=== PATIENT | female | born 1990 | race Caucasian/White ===

== ENCOUNTER 2017-06-23 03:11 | Inpatient (IN) | payer MEDICAID, SELFPAY ==
[2017-06-23] MEDS ORDERED: Labetalol HCl 100 MG/20 ML VIAL SLOW IVP PRN (06:41)
[2017-06-23 06:43] VITALS: BMI 27.4
[2017-06-23] MEDS ORDERED: Promethazine HCl 25 MG/ML VIAL IM PRN (06:51)
[2017-06-23] MEDS ORDERED: Ondansetron HCl/PF 4 MG/2 ML Vial IVP PRN ×2 (06:51→07:30)
[2017-06-23] MEDS ORDERED: Magnesium Sulfate 20 gm/500 ml 4 GM/100 ML BAG IVPB ONE (06:54)
[2017-06-23] MEDS ORDERED: Calcium Gluc 4.6 MEQ/10 ML (100 MG/ML) IV PRN (06:54)
[2017-06-23] MEDS ORDERED: LR 500 ML/Oxytocin 10 units 500 ML IV SCH ×2 (07:15)
[2017-06-23] MEDS ORDERED: HYDROcodone/Acetaminophen 5/325 mg Tablet PO PRN ×2 (07:15)
[2017-06-23] MEDS ORDERED: Lidocaine 1% (PF) 30 ML VIAL SC PRN (07:15)
[2017-06-23] MEDS ORDERED: LR / Pitocin 40 units/1000 ml 40 UNITS/1,000 ML BAG IV SCH ×2 (07:15→07:30)
[2017-06-23] MEDS ORDERED: traMADol HCl 50 MG TAB PO PRN ×2 (07:30)
[2017-06-23] MEDS ORDERED: Preparation H Ointment 28 GM TUBE PR PRN (07:30)
[2017-06-23] MEDS ORDERED: OXYTOCIN IV SCH (07:30)
[2017-06-23] MEDS ORDERED: Bisacodyl 10 MG SUPP PR PRN (07:30)
[2017-06-23] MEDS ORDERED: Lanolin Ointment 7 GM TUBE TOP PRN (07:30)
[2017-06-23] MEDS ORDERED: Adacel (T-DAP) 0.5 ML VIAL IM SCH (07:30)
[2017-06-23] MEDS ORDERED: Milk Of Magnesia 30 ML UDCUP PO PRN (07:30)
[2017-06-23] MEDS ORDERED: Lactated Ringer's 1,000 ML IV SCH (07:30)
[2017-06-23] MEDS ORDERED: diphenhydrAMINE 25 MG CAP PO PRN (07:30)
[2017-06-23] MEDS ORDERED: LACTATED RINGERS IV SCH (07:30)
--- NOTE | 2017-06-23 07:49 | DN ---
DATE OF DELIVERY: 06/23/2017 DESCRIPTION OF PROCEDURE: The patient delivered a male on 06/23/2018 at 4:52 a.m. by uncompli cated term spontaneous vaginal delivery. Apgars were 7 and 9. Weight is unavailable at time of dict ation. Placenta delivered spontaneously followed by Pitocin infusion. There were no lacerations. E stimated blood loss is [address] Payne is the delivering physician. Mother and baby are stable in the immediate .
[2017-06-23 08:22] LABS: Cocaine Metabolite Screen Not Detected (NotDetected); Medtox Reader # READER 4; Methamphetamine Detected (NotDetected); Phencyclidine (PCP) Not Detected (NotDetected); THC/Cannabinoid Screen Not Detected (NotDetected)
[2017-06-23 08:23] LABS: Amphetamine Detected (NotDetected); Barbiturates Screen Not Detected (NotDetected); Benzodiazepine Screen Not Detected (NotDetected); Medtox Control Line Valid? VALID (VALID); Methadone Not Detected (NotDetected); Opiate Screen Not Detected (NotDetected); Oxycodone Screen Not Detected (NotDetected); Tricyclic Screen Not Detected (NotDetected)
[2017-06-23 08:28] LABS: Bilirubin Negative (Negative); Blood, Urine Small (Negative); Clarity CLEAR (Clear); Glucose, Urine (Dipstick) Negative (Negative); Leukocyte Negative (Negative); Nitrite Negative (Negative); Protein, Urine (Dipstick) 30 mg/dL (Neg-Trace); Specific Gravity, Urine 1.028 (1.002-1.036); pH, Urine 6.5 (5.0-9.0)
[2017-06-23 08:30] LABS: Bacteria/HPF Rare-Few HPF (None Seen); Pathc Cast-AUWi Flag 0.87 (0-2.49); Squamous Epithelial 21-50 HPF (0-3)
[2017-06-23 08:42] LABS: Renal Epithelial 0-3 HPF (0-3); Transitional Epithelial 0-3 HPF (0-3)
[2017-06-23 08:43] LABS: Hyaline Casts/LPF 0-3 HYALINE CAST LPF (0-3 Hyaline)
[2017-06-23] MEDS: Lactated Ringer's 1,000 ML IV SCH ×2 (08:58→18:45)
[2017-06-23] MEDS ORDERED: NIFEdipine XL 30 MG TAB PO SCH (09:00)
[2017-06-23] MEDS ORDERED: Prenatal Vitamin 1 TAB PO SCH (09:00)
[2017-06-23 10:45] LABS: Hemoglobin 11.9 g/dL (12.0-16.0); Mean Corpuscular Hemoglobin 29.5 pg (27.0-31.0); Mean Corpuscular Volume 89.4 fL (81.0-99.0); RBC Distribution Width 12.5 % (11.5-14.5); Red Blood Cell (RBC) Count 4.03 mill/uL (4.20-5.40); White Blood Cell (WBC) Count 16.6 thou/uL (4.8-10.8)
[2017-06-23 10:46] LABS: Mean Platelet Volume 9.5 fL (7.4-10.4); Platelet Count 240 thou/uL (130-400)
[2017-06-23 10:59] LABS: Anion Gap 15 mmol/L (10-20); BUN (Urea Nitrogen) 14 mg/dL (7.0-18.7); Carbon Dioxide 17 mmol/L (22-29); Chloride 109 mmol/L (98-107); Potassium 3.5 mmol/L (3.5-5.1); Sodium 137 mmol/L (136-145)
[2017-06-23 11:00] LABS: ALT (SGPT) 20 U/L (8-55); AST (SGOT) 33 U/L (5-34); Albumin 3.4 g/dL (3.5-5.0); Alkaline Phosphatase 219 U/L (40-150); Bilirubin, Total 0.6 mg/dL (0.2-1.2); Calc. Creatinine Clearance 135 mL/min (70-130); Calcium 8.8 mg/dL (7.8-10.44); Estimated GFR-MDRD Greater than 90; Globulin 2.8 g/dL (2.4-3.5); Glucose 106 mg/dL (70-105); Protein, Total 6.2 g/dL (6.0-8.3)
--- NOTE | 2017-06-23 11:01 | PDOC.PP ---
Post Progress Note Post Day #: PPD#0 Subjective: Resting comfortably. Denies PETERSON, RUQ pain or visual changes. PO intake tolerated: yes Ambulation: no Vital Signs (12 hours) Temp Pulse Resp 06/23/17 08:46 97.9 F 80 18 06/23/17 08:43 97.9 F 80 18 Weight Weight 68.039 kg - Physical Examination General: NAD Abdominal: lochia Fundus firm & at: umbilicus Neurological: no gross focal deficits Psychiatric: normal affect Result Diagrams: 06/23/17 07:58 Additional Labs: Post Labs Blood Type O POSITIVE 06/23/17 03:40 - Assessment/Plan S/p with suspected severe PIH Cont. Mgso4 x 24 hours +UDS d/w pt., SS consult ordered
[2017-06-23 11:02] LABS: HBSAg Index 0.17 S/CO (0-0.99); HIV (1/2) Antibody/Antigen N (NonReactive); Hep B Surf Ag NonReactive S/CO (NonReactive)
[2017-06-23 11:03] LABS: HIV 1/2 INDEX 0.13 S/CO (<1.00)
[2017-06-23] MEDS: Docusate Calcium (SURFAK) 240 MG CAP PO SCH ×2 (11:08→21:07)
[2017-06-23] MEDS: Ferrous Sulfate 325 MG TAB PO SCH ×2 (11:12→18:45)
[2017-06-23] MEDS: Magnesium Sulfate 20 gm/500 ml 20 GM/500 ML BAG IVPB PRN (13:58)
[2017-06-23 23:21] LABS: Syphilis Antibody Nonreactive (Nonreactive); Syphilis Antibody Index 0.06 S/CO (<1.00 Non-Reactive)
[2017-06-24] MEDS: Magnesium Sulfate 20 gm/500 ml 20 GM/500 ML BAG IVPB PRN (00:06)
--- NOTE | 2017-06-24 04:44 | PDOC.PP ---
Post Progress Note Post Day #: PPD#1 Subjective: Resting comfortably. No complaints. PO intake tolerated: yes Vital Signs (12 hours) Temp Pulse Resp 06/24/17 04:00 98.6 F 79 16 06/24/17 00:00 98.8 F 79 16 06/23/17 20:00 98.9 F 79 16 Weight Weight 68.039 kg - Physical Examination General: NAD Respiratory: non-labored breathing Abdominal: no distention Fundus firm & at: umbilicus Psychiatric: A&Ox3, normal affect Result Diagrams: 06/23/17 07:58 06/23/17 07:56 Additional Labs: Post Labs Blood Type O POSITIVE 06/23/17 03:40 Hep Bs Antigen NonReactive S/CO (NonReactive) 06/23/17 07:58 - Assessment/Plan S/P with PIH. UDS + f0r methamphedamines DC Mg SO4 and transfer to floor.
[2017-06-24 06:27] LABS: Hemoglobin 9.9 g/dL (12.0-16.0); Mean Corpuscular HGB CONC 33.6 g/dL (32.0-36.0); Mean Corpuscular Hemoglobin 30.1 pg (27.0-31.0); Mean Corpuscular Volume 89.6 fl (81.0-99.0); Mean Platelet Volume 9.3 fL (7.4-10.4); Platelet Count 253 thou/uL (130-400); RBC Distribution Width 12.5 % (11.5-14.5); Red Blood Cell (RBC) Count 3.29 mill/uL (4.20-5.40)
[2017-06-24] MEDS ORDERED: Acetaminophen/Codeine 30-300mg Tablet PO PRN (06:46)
[2017-06-24] MEDS ORDERED: LR / Pitocin 40 units/1000 ml 1,000 ML IV SCH (06:46)
[2017-06-24] MEDS ORDERED: Ondansetron HCl/PF 4 MG/2 ML Vial IVP PRN (06:46)
[2017-06-24] MEDS ORDERED: HYDROcodone/Acetaminophen 5/325 mg Tablet PO PRN ×2 (06:46)
[2017-06-24] MEDS ORDERED: Ibuprofen 800 MG TAB PO PRN (09:07)
[2017-06-24 23:31] VITALS: BP 142/80; TEMP 98.4
--- NOTE | 2017-06-25 00:51 | DIS ---
DATE OF ADMISSION: 06/23/2017 DATE OF DISCHARGE: 06/24/2017 ADMITTING DIAGNOSES: 1. Labor. 2. -induced hypertension. 3. Positive drug screen. DISCHARGE DIAGNOSES: 1. Labor. 2. -induced hypertension. 3. Positive drug screen. PROCEDURE: Normal vaginal delivery. HOSPITAL COURSE: The patient is a 26-year-old female who presented in active labor to [facility] very and fairly quickly thereafter delivered by uncomplicated vaginal , a male . Her post course has been complicated by a positive drug screen for methamphetamines with her and the ba by. Case management has been involved and CPS has made the decision to take custody of all of her ildren at this time. It is now patient's course as she had severe blood pressures through out her labor here, had reported a history of chronic hypertension and had severe pressures immediate ly . The patient was placed on magnesium for 24 hours and then subsequently sent to the [facility] early this morning. Given the news of the patient has requested discharge to home. Her blood pr essures have remained normal to mild range on Procardia, which was begun yesterday morning. The joanne ent is being discharged to home as she has had no care. She has been given instructions to follow up with [facility] in 1 week for blood pressure check. She is being dischar gemarion to home on Procardia-XL 30 mg #20 and has been using [id number] ibuprofen. The patient lotus l be given instructions to seek medical attention if she experiences headache, increasing shortness o f breath or exacerbation in her blood pressure.
== END 2017-06-25 01:00 | disposition home or self-care (01) | DRG 775 ==
LOC: L&D/OP 03:11 → L&D 04:52 → 3SW 06-24 06:40
PROVIDERS: ADMIT Obstetrics & Gynecology; ATTEND Obstetrics & Gynecology
PROC: 10E0XZZ Delivery of Products of Conception, External Approach (ICD-10-PCS; principal; 2017-06-23)
DX: O13.4 Gestational [pregnancy-induced] hypertension without significant proteinuria, complicating childbirth (principal); O99.324 Drug use complicating childbirth; Z37.0 Single live birth; F19.90 Other psychoactive substance use, unspecified, uncomplicated; Z3A.00 Weeks of gestation of pregnancy not specified
CPT/HCPCS: 36415; 51701; 51702; 80053; 80306; 81001; 83735; 85027; 86762; 86780; 86850; 86900; 86901; 87340; 87389; 88307; 99285; J3475

== ENCOUNTER 2019-01-29 15:58 | Outpatient (CLI) | payer MEDICAID ==
--- NOTE | 2019-01-29 17:27 | ULT ---
EXAM: Obstetrical ultrasound greater than 14 weeks: HISTORY: Size and dates, anatomy COMPARISON: None. FINDINGS: Single viable intrauterine fetus is noted in breech presentation. heart rate equals 135 bpm. Placenta is posterior without overt previa.. Cervical length is 5.3 cm. Amniotic fluid is Within normal limits. anatomy: Visualized brain, 4 chamber heart, chest, three-vessel cord, cord insert, stomach, bladder, kid neys, spine, and extremity regions are unremarkable. biometry: BPD: 6.7 cm--27 weeks 0 days Head circumference: 25.4 cm--27 weeks 4 days Abdominal circumference: 23.1 cm--27 weeks 3 days Femur length:4.9 cm--26 weeks 4 days IMPRESSION: Gestational age by ultrasound: 27 weeks 1 day LANDEN by ultrasound: 04/29/2019 Estimated weight: 1029 g
== END 2019-01-29 15:59 | disposition home or self-care (01) ==
LOC: BICULT 15:58
PROVIDERS: ATTEND Nurse Practitioner
DX: Z34.82 Encounter for supervision of other normal pregnancy, second trimester (principal); Z3A.27 27 weeks gestation of pregnancy
CPT/HCPCS: 76805

== ENCOUNTER 2019-05-06 19:36 | Inpatient (IN) | payer OTHER ==
[2019-05-06 20:10] VITALS: BMI 35.8
[2019-05-06] MEDS: Lactated Ringer's 1,000 ML IV SCH (20:34)
[2019-05-06] MEDS ORDERED: Promethazine HCl 25 MG/ML VIAL IM PRN (21:29)
[2019-05-06] MEDS ORDERED: Ondansetron PF 4 MG/2 ML Vial IVP PRN (21:29)
[2019-05-06] MEDS ORDERED: Lidocaine 1% (PF) 30 ML VIAL SC PRN (21:29)
[2019-05-06] MEDS ORDERED: HYDROcodone/Acetaminophen 5/325 mg Tablet PO PRN (21:29)
[2019-05-06] MEDS ORDERED: Carboprost 250 MCG/ML AMP IM PRN (21:29)
[2019-05-06] MEDS ORDERED: hydrALAZINE 20 MG/ML VIAL SLOW IVP PRN (21:29)
[2019-05-06] MEDS ORDERED: Ibuprofen 800 MG TAB PO PRN (21:29)
[2019-05-06] MEDS ORDERED: Diphenoxylate HCl/Atropine Tablet PO PRN (21:29)
[2019-05-06] MEDS ORDERED: Misoprostol 200 MCG TAB PR PRN (21:29)
[2019-05-06] MEDS ORDERED: Methylergonovine 0.2 MG/ML VIAL IM PRN (21:29)
[2019-05-06] MEDS ORDERED: Butorphanol Tartrate 1 MG/ML VIAL SLOW IVP PRN (21:29)
[2019-05-06] MEDS ORDERED: NS w/ Oxytocin 10 units 500 ML IV SCH ×2 (21:30)
[2019-05-06 22:29] LABS: Hemoglobin 11.3 g/dL (12.0-16.0); Mean Corpuscular HGB CONC 33.9 g/dL (32.0-36.0); Mean Corpuscular Volume 88.3 fL (78.0-98.0); Mean Platelet Volume 9.4 fL (7.4-10.4); Platelet Count 168 thou/uL (130-400); RBC Distribution Width 12.5 % (11.5-14.5); Red Blood Cell (RBC) Count 3.76 mill/uL (4.20-5.40); White Blood Cell (WBC) Count 12.3 thou/uL (4.8-10.8)
[2019-05-06 23:08] LABS: Syphilis Antibody Nonreactive (Nonreactive); Syphilis Antibody Index 0.06 S/CO (<1.00 Non-Reactive)
[2019-05-06 23:13] LABS: HBSAg Index 0.19 S/CO (0-0.99); Hep B Surf Ag Non-Reactive S/CO (NonReactive)
[2019-05-07] MEDS: Lactated Ringer's 1,000 ML IV SCH ×2 (05:34→17:04)
[2019-05-07] MEDS ORDERED: FLU VACC QS2019-20(6MOS UP)/PF 60 MCG/0.5 ML SYRINGE IM ONE (09:00)
[2019-05-07] MEDS ORDERED: Fentanyl 4 mcg/Bup 0.1% Cadd 100 ML ONE (11:52)
[2019-05-07] MEDS: NS / Oxytocin 40 units/1000ml 1,000 ML IV PRN ×2 (12:05→13:44)
[2019-05-07] MEDS ORDERED: hydrALAZINE 20 MG/ML VIAL SLOW IVP PRN (15:45)
[2019-05-07] MEDS ORDERED: Preparation H Ointment 28 GM TUBE PR PRN (15:45)
[2019-05-07] MEDS ORDERED: Lanolin Ointment 7 GM TUBE TOP PRN (15:45)
[2019-05-07] MEDS ORDERED: HYDROcodone/Acetaminophen 5/325 mg Tablet PO PRN ×2 (15:45)
[2019-05-07] MEDS ORDERED: Milk Of Magnesia 30 ML UDCUP PO PRN (15:45)
[2019-05-07] MEDS ORDERED: Ondansetron PF 4 MG/2 ML Vial IVP PRN (15:45)
[2019-05-07] MEDS ORDERED: NS / Oxytocin 40 units/1000ml 1,000 ML IV SCH (15:45)
[2019-05-07] MEDS ORDERED: Bisacodyl 10 MG SUPP PR PRN (15:45)
[2019-05-07] MEDS ORDERED: Promethazine HCl 25 MG/ML VIAL IM PRN (15:45)
[2019-05-07] MEDS ORDERED: Adacel (T-DAP) 0.5 ML SYRINGE IM ONE (15:45)
[2019-05-07] MEDS: Ibuprofen 800 MG TAB PO SCH ×2 (17:04→22:20)
[2019-05-07] MEDS: Ferrous Sulfate 325 MG TAB PO SCH (17:04)
[2019-05-07] MEDS ORDERED: cloNIDine 0.1 MG TAB PO PRN (17:28)
[2019-05-07] MEDS: Docusate Calcium (SURFAK) 240 MG CAP PO SCH (22:20)
[2019-05-08] MEDS: Ibuprofen 800 MG TAB PO SCH ×2 (05:22→13:42)
[2019-05-08 06:15] LABS: Mean Corpuscular Hemoglobin 30.8 pg (27.0-31.0); Mean Corpuscular Volume 90.4 fL (78.0-98.0); Mean Platelet Volume 8.9 fL (7.4-10.4); Platelet Count 160 thou/uL (130-400); RBC Distribution Width 12.4 % (11.5-14.5); Red Blood Cell (RBC) Count 3.24 mill/uL (4.20-5.40); White Blood Cell (WBC) Count 12.1 thou/uL (4.8-10.8)
[2019-05-08] MEDS: Ferrous Sulfate 325 MG TAB PO SCH ×2 (08:26→14:55)
[2019-05-08] MEDS: Docusate Calcium (SURFAK) 240 MG CAP PO SCH (08:26)
[2019-05-08] MEDS ORDERED: FLU VACC QS2019-20(6MOS UP)/PF 60 MCG/0.5 ML SYRINGE IM ONE ×2 (08:34→08:45)
[2019-05-08] MEDS ORDERED: Prenatal Vitamin 1 TAB PO SCH (09:00)
[2019-05-08 11:40] VITALS: BP 132/79; TEMP 98.8
== END 2019-05-08 19:42 | disposition home or self-care (01) | DRG 807 ==
LOC: L&D 19:36 → 3SW 05-07 15:43
PROVIDERS: ADMIT Family Medicine; ATTEND Family Medicine
PROC: 10E0XZZ Delivery of Products of Conception, External Approach (ICD-10-PCS; principal; 2019-05-07)
PROC: 3E033VJ Introduction of Other Hormone into Peripheral Vein, Percutaneous Approach (ICD-10-PCS; 2019-05-07)
DX: O80 Encounter for full-term uncomplicated delivery (principal); Z37.0 Single live birth; Z3A.41 41 weeks gestation of pregnancy
CPT/HCPCS: 36415; 76815; 85027; 86780; 86850; 86900; 86901; 87340; 90471; 90686; 90715; 99285; G0008; J2590